=== PATIENT | male | born 1960 | race Caucasian/White ===

== ENCOUNTER → 2024-02-22 08:48 | Outpatient (REF) | payer OTHER, SELFPAY ==
--- NOTE | 2024-02-22 09:00 | CA_ITS ---
Transthoracic Echocardiogram Patient (Last, First, Middle): Sulaiman Bolanos, Gender: Male Date of : 1960 Age: 63 Procedure Date: 02/22/2024 Procedure Type: Transthoracic Echocardiogram Location: OP Height: 175.26 cm Weight: 84.82 kg BSA: 2.01 m2 Heart Rate: 56 bpm BP: 130 / 85 mmHg Phlebotomy Technician: MERON Referring MD: Sesar Vega MD Symptoms: STEMI LAD COR ART I21.02 Z95.5 DRUG ELUTING STENT, R94.31 ABD EKG E13.9 Study Quality: Adequate w/Cintrast ECG Rhythm: Bradycardia Conclusions: - 1. Normal LV ejection fraction with LVEF of 60-65% with regional wall motion abnormality in mid to distal LAD territory with grade 1 diastolic dysfunction 2. Normal cardiac valvular Doppler Findings Procedure Information Contrast agent, definity, is being given per protocol without apparent complications. Left Ventricle Normal left ventricular size and systolic function. There is mildly increased left ventricular wall thickness. Spectral Doppler is indicative of an impaired relaxation filling pattern. E/E prime ratio is between 8 and 15 consistent with indeterminate filling pressures. Wall Motion Rest Echo Findings The apical anterior segment is hypokinetic. The apex, apical inferior, and apical septum segments are akinetic. All other scored wall segments showed normal motion. Right Ventricle Normal right ventricular cavity size and systolic function. Atria Both atria are normal in size. There is no evidence of interatrial shunt. Aortic Valve The aortic valve structure and function is likely normal. There is no aortic valve stenosis. There is no aortic valve regurgitation. Mitral Valve Normal mitral valve structure and function. There is trace mitral valve regurgitation. There is no mitral valve stenosis. Pulmonic Valve The pulmonic valve is likely normal. There is trace pulmonic valve regurgitation. Tricuspid Valve Likely normal tricuspid valve structure and function. Tricuspid regurgitation envelope is inadequate for calculation of right ventricular systolic pressure. Normal right atrial pressure. Great Vessels The aorta was not well visualized. The pulmonary artery was not well visualized. There is no dilatation of the ascending aorta. Venous The inferior vena cava is normal in size and collapses greater than 50% with inspiration. Pericardium/Pleural There is no evidence of pericardial effusion. Prior Study Comparison No prior study available for comparison. Measurements 2D Linear Measurements IVSd: 1.33 0.6-0.9/0.6-1.0 cm LVIDd: 4.25 3.9-5.3/4.2-5.9 cm LVIDd Index: 2.11 2.4-3.2/2.2-3.1 cm/m2 LVIDs: 2.35 2.0-3.6 cm LVPWd: 1.23 0.7-1.1 cm LA Diam: 4.00 2.7-3.8/3.0-4.0 cm LAIDs Index: 1.99 1.5-2.3 cm/m2 LV Mass: 248.62 67-162/88-224 g LV Mass Index: 123.69 43-95/49-115 g/m2 LVOT Diam: 2.20 3.0+(-)1.3 cm 2D Systolic Function EF 4C: 60.20 >55% EF 2C: 59.10 >55% EF BiP: 60.90 >55% Mitral Valve MV Pk E: 0.58 MV PK A: 0.74 MV Decel Time: 273.00 E/A: 0.80 E'Lateral: 5.77 E'Medial: 6.31 E/E' Med: 9.20 E/E' Lat: 10.10 PHT: 80.00 MVA PHT: 2.75 Decel [place]: 2.13 Aortic Valve AoV Pk Tomi: 1.41 AoV Mn Tomi: 0.92 AoV VTI: 0.31 AoV Pk Grad: 8.00 Aov Mn Grad: 4.00 JESSICA Cont.VTI: 2.90 LVOT LVOT Pk Tomi: 1.05 LVOT Mn Tomi: 0.71 LVOT VTI: 0.24 LVOT Pk Grad: 4.00 LVOT Mn Grad: 2.00 LVOT Diam: 2.20 LVOT Area: 3.80 Diastolic Function MV Pk E: 0.58 MV Pk A: 0.74 E/A: 0.80 E'Medial: 6.31 E/E' Med: 9.20 E' Laterial: 5.77 E/E' Lat: 10.10 Right Ventricle TAPSE (mm): 21.70 TVS' Tomi: 14.60 Tricuspid Valve TR Pk Tomi: 2.02 TR Pk Grad: 16.00 Great Vessels Aorta Sinus of Valsalva: 3.30 2.0-3.5 cm Ao Asc: 3.10 2.1-3.4 cm Pulmonary Valve PV Pk Tomi: 1.33 Peak PV Grad: 7.00 Updated in Other Vendor System with Status of Final Hi Rose MD electronically signed on 02/22/2024 1:19:28 PM with status of Final
== END ==
LOC: HO.CARD 08:48
PROVIDERS: PCP Internal Medicine; Visit Provider Internal Medicine Cardiovascular Disease
DX: I21.02 ST elevation (STEMI) myocardial infarction involving left anterior descending coronary artery (principal); R94.31 Abnormal electrocardiogram [ECG] [EKG]
CPT/HCPCS: 93306; Q9957

== ENCOUNTER → 2024-02-22 09:00 | Outpatient (BNV) | payer OTHER, SELFPAY | PROVIDERS: PCP Internal Medicine; Visit Provider Internal Medicine Cardiovascular Disease | DX: I25.10 Atherosclerotic heart disease of native coronary artery without angina pectoris (principal); Z95.5 Presence of coronary angioplasty implant and graft; R93.1 Abnormal findings on diagnostic imaging of heart and coronary circulation | CPT/HCPCS: 93306 ==